=== PATIENT | male | born 1960 | race Caucasian/White ===

== ENCOUNTER 2020-07-14 06:17 | Day surgery (SDC) | payer OTHER ==
[2020-07-10 14:29] LABS: COVID AG,FIA SOURCE NASOPHARYNGEAL
[~2020-07-14] VITALS: Ht 167.6 cm; Wt 75.5 kg
[~2020-07-14 06:17] MED LIST: ALBU8.5H8 IH; ASPI-556 PO; CETI-450 PO; GLIP10 PO; IBUP-2071 PO; ISOS5 PO; LISI-894 PO; METF-960 PO; METO50 PO; MOME13HF IH; MONT-35 PO; OMEP20 PO; ROSU20TA73 PO; SAXA2.5T PO; SODIUM CHLORIDE 0.9% 1,000 ML ONE; TRAZ-252 PO
[2020-07-14] MEDS ORDERED: ALBUTEROL SULFATE 2.5 MG/0.5 ML NEB SOLUTION NEB ONE (06:18)
[2020-07-14] MEDS ORDERED: LIDOCAINE 2% 30 ML JELLY TP ONE (06:18)
[2020-07-14] MEDS ORDERED: BENZOCAINE 20% 50 MCG/SPRAY 57 GM TP ONE (06:18)
[2020-07-14] MEDS ORDERED: SODIUM CHLORIDE 0.9% 1,000 ML IV ONE (06:30)
[2020-07-14 07:15] LABS: GLUCOMETER DEV NAME(LOC) SDS.; GLUCOSE,POINT OF CARE 171 MG/DL (70-110)
[2020-07-14] MEDS ORDERED: MIDAZOLAM HCL 2 MG/2 ML VIAL ONE (07:24)
[2020-07-14] MEDS ORDERED: FentaNYL CITRATE PF 100 MCG/2 ML VIAL ONE (07:24)
[2020-07-14] MEDS ORDERED: MethylPREDNISolone SOD SUCC 125 MG/2 ML VIAL ONE (08:55)
[2020-07-14] MEDS ORDERED: MethylPREDNISolone SOD SUCC 125 MG/2 ML VIAL IVP ONE (09:00)
[2020-07-14] MEDS ORDERED: OXYGEN THERAPY IH SCH (20:00)
== END 2020-07-14 10:00 | disposition home or self-care (01) ==
LOC: SURGERY 06:17
PROVIDERS: ATTEND Internal Medicine Critical Care Medicine
DX: J38.4 Edema of larynx (principal); B37.0 Candidal stomatitis; I10 Essential (primary) hypertension; E78.00 Pure hypercholesterolemia, unspecified; M19.90 Unspecified osteoarthritis, unspecified site; E11.9 Type 2 diabetes mellitus without complications; F17.210 Nicotine dependence, cigarettes, uncomplicated; E78.5 Hyperlipidemia, unspecified; Z72.89 Other problems related to lifestyle; Z98.890 Other specified postprocedural states; Z79.899 Other long term (current) drug therapy
CPT/HCPCS: 31623; 31624; 71045; 82962; 87015; 87070; 87101; 87205; 87206; 87220; 87426; 88108; 88184; 88185; 88312; C9803; J2250; J2930; J3010; J7030; J7613